=== PATIENT | male | born 1990 | race Caucasian/White ===

== ENCOUNTER 2021-04-19 06:12 | Emergency (ER) | payer MEDICAID ==
[~2021-04-19] VITALS: Ht 170.2 cm; Wt 74.4 kg
--- NOTE | 2021-04-19 06:26 | NUR ---
PT C/O OF HEARTBURN AND VOMITTING BLOOD SINCE 0200 OR 0. NO CURRENT VOMITTING AT THIS TIME. PT ATTACHED TO MONITORS. VSS. NADN. BED IN LOW POSITION, RAILS ENGAGED, CALL LIGHT ON LAP GF AT BEDSIDE. WCTM
[2021-04-19] MEDS ORDERED: FAMOTIDINE 20 MG TABLET PO/NG ONE (06:30)
[2021-04-19] MEDS ORDERED: MAALOX/HYOSCYAMINE/LIDOCAINE 45 ML BTL PO ONE (06:30)
[2021-04-19 06:31] VITALS: BP 129/88
[2021-04-19] MEDS ORDERED: FAMOTIDINE 20 MG TABLET ONE (06:34)
[2021-04-19] MEDS ORDERED: MAALOX/HYOSCYAMINE/LIDOCAINE 45 ML BTL ONE (06:34)
--- NOTE | 2021-04-19 06:51 | NUR ---
GAVE REPORT TO LYNDA DEL TORO. TRANSFER OF CARE
--- NOTE | 2021-04-19 07:08 | NUR ---
Patient given discharge instructions and they have confirmed that they understand the instructions. Patient ambulatory with steady gait.
== END 2021-04-19 07:09 | disposition home or self-care (01) ==
LOC: ED 07:00
DX: K29.00 Acute gastritis without bleeding (principal); R11.2 Nausea with vomiting, unspecified; K21.9 Gastro-esophageal reflux disease without esophagitis
CPT/HCPCS: 93005; 99283